=== PATIENT | male | born 1955 | race Caucasian/White ===

== ENCOUNTER → 2018-09-29 | Day surgery (SDC) | payer BC ==
[~2018-09-29] MED LIST: ATOR10TA60 PO; FLUT1DIS5 IH; FURO20TA3 PO; IV RINGERS,LACTATED 1000ML 1,000 ML IV SCH; MONT10TA49 PO; NAPR500T8 PO; OLME1TAB37 PO; PIOG1TAB24 PO; POTA20TA82 PO; PROPOFOL 40 ML IV ONE
[2018-09-29 13:45] VITALS: BP 108/61
--- NOTE | 2018-09-29 22:12 | CONS ---
DATE OF CONSULTATION: 09/29/2018 GASTROENTEROLOGY CONSULTATION REFERRING PHYSICIAN: Roberto Dudley. REASON FOR CONSULTATION: Colorectal screening. HISTORY OF PRESENT ILLNESS: A 63-year-old male whose past medical history is significant for hyperlipidemia, osteoarthrosis and diabetes, is seen for interval colonoscopy; one done 10 years ago was unrevealing for polyps or cancers. Denies any change in bowel habits, bleeding, diarrhea or constipation. No family history is noted. Weight and appetite are stable. He is otherwise without additional complaints. PAST MEDICAL HISTORY: Status post tonsillectomy, asthma, hypertension, osteoporosis and diabetes. ALLERGIES: None. MEDICATIONS: Include atorvastatin, Advair, furosemide, montelukast, Naprosyn, olmesartan, hydrochlorothiazide, Actos and potassium chloride. FAMILY AND SOCIAL HISTORY: Nonsmoker and nondrinker. Family history is significant for organic heart disease or heart attack with his father. REVIEW OF SYSTEMS: Per records. PHYSICAL EXAMINATION: GENERAL: Reveals a well-nourished, well-developed male, who is alert and cooperative, in no acute distress. VITAL SIGNS: Temperature 97.4, pulse 81 and respiratory rate is 20. HEENT EXAMINATION: Reveals normocephalic and atraumatic head. Pupils and extraocular muscles are not tested. Sclerae anicteric. NECK: Supple. LUNGS: Clear. CARDIOVASCULAR EXAMINATION: Reveals an S1, S2, without S3, S4 or appreciable murmur. ABDOMEN: Examination reveals soft abdomen. Normoactive bowel sounds, without appreciable hepatosplenomegaly. EXTREMITIES: Examination reveals no cyanosis, clubbing or edema. IMPRESSION AND PLAN: Colorectal screening is warranted at this time. Risks and benefits of the procedure, including risk of hemorrhage or perforation requiring operation have been discussed with the patient, who is willing to proceed. I would like to thank Roberto Dudley for allowing us to consult and participate in the patient's care. ANTHONY MOELLER MD DR: JOHNATHAN/london JOB#: [id number] / [id number] ROBERTO Galvan
== END | disposition home or self-care (01) ==
LOC: SURG 11:12
PROVIDERS: ATTEND Internal Medicine Gastroenterology
DX: Z12.11 Encounter for screening for malignant neoplasm of colon (principal); K64.0 First degree hemorrhoids; I10 Essential (primary) hypertension; J45.909 Unspecified asthma, uncomplicated; E11.9 Type 2 diabetes mellitus without complications; E78.5 Hyperlipidemia, unspecified; M19.90 Unspecified osteoarthritis, unspecified site; M81.0 Age-related osteoporosis without current pathological fracture; Z79.899 Other long term (current) drug therapy; Z82.49 Family history of ischemic heart disease and other diseases of the circulatory system; Z98.890 Other specified postprocedural states; Z79.84 Long term (current) use of oral hypoglycemic drugs
CPT/HCPCS: 45378; J2704